=== PATIENT | male | born 1975 | race Caucasian/White ===

== ENCOUNTER 2016-09-27 20:23 | Emergency (ER) | payer SELFPAY ==
[~2016-09-27] VITALS: Ht 177.8 cm; Wt 81.6 kg
--- NOTE | 2016-09-27 20:54 | ED Integumentary General ---
General Chief Complaint: Bite-Animal/Human/Insect Stated Complaint: BUG BITES Nursing Triage Note: States that he noticed "bug bites" to arms and legs. States that it has now moved to face and into nasal passage and eye cavity maiking his visiion blurry. States his arms feel like they are crawling and that he could even see them move. Soars are open and red. Source: patient Exam Limitations: no limitations History of Present Illness Time seen by provider: 20:52 Initial Comments To ER with reports of "bug bites" to his arms and legs for 2 weeks. States that he last used methamphetamine a few days ago. He insists that he does not actually get "high" on methamphetamine. He states these do itch. I advised him the sores are likely from the methamphetamine use but he insists "no, my mother and even my friends all these things moving under my skin. I'm not hallucinating" Timing/Duration: just prior to arrival Severity: moderate Associated Symptoms: denies symptoms Allergies and Home Medications Allergies Coded Allergies: No Known Drug Allergies (Unverified , 09/27/16) Home Medications No Active Prescriptions or Reported Meds Constitutional: see HPI EENTM: see HPI Respiratory: no symptoms reported Cardiovascular: no symptoms reported Genitourinary: no symptoms reported Musculoskeletal: no symptoms reported Skin: see HPI Psychiatric/Neurological: No Symptoms Reported Endocrine: No Symptoms Reported ([place]) Past Sqenbqo-Yofxot-Iqmhsg Hx Patient Social History Alcohol Use: Denies Use Recreational Drug Use: Yes Drug of Choice: meth Smoking Status: Current Everyday Smoker Type Used: Electronic/Vapor 2nd Hand Smoke Exposure: No Recent Foreign Travel: No Contact w/Someone Who Travel: No Recent Infectious Disease Expo: No Recent Hopitalizations: No Immunizations Up To Date Tetanus Booster (TDap): Unknown Seasonal Allergies Seasonal Allergies: No Surgeries Surgeries: Abdominal Blood Transfusions Adverse Reaction to a Blood Tr: No Physical Exam Vital Signs Vital Sign - Last 12Hours 09/27/16 20:45 Pulse 81 Resp 18 B/P (MAP) 153/100 Pulse Ox 99 Capillary Refill : Less Than 3 Seconds General Appearance: WD/WN, no apparent distress HEENT: PERRL/EOMI, normal ENT inspection Neck: non-tender, full range of motion Respiratory: no respiratory distress, no accessory muscle use Gastrointestinal: normal bowel sounds, non tender, soft Neurologic/Psychiatric: alert, normal mood/affect, oriented x 3 Skin: normal color, warm/dry, other (multiple sores to arms and legs without drainage but about 1 cm of surrounding erythema. Consistent with skin picking behavior seen with methamphetamine use.) Progress/Results/Core Measures Results/Orders Vital Signs/I&O Vital Sign - Last 12Hours 09/27/16 20:45 Pulse 81 Resp 18 B/P (MAP) 153/100 Pulse Ox 99 Blood Pressure Mean: 117 Departure Impression Impression: Primary Impression: Tactile hallucinations Additional Impressions: Methamphetamine use Soft tissue infection Disposition: HOME, SELF-CARE Condition: Stable Departure-Patient Inst. Decision time for Depature: 20:54 Referrals: NO,LOCAL PHYSICIAN (PCP) Primary Care Physician Patient Instructions: NO INSTRUCTIONS GIVEN Add. Discharge Instructions: 1. All discharge instructions reviewed with patient and/or family. Voiced understanding. Scripts No Active Prescriptions or Reported Meds JUICE HERNANDEZ APRN Sep 27, 2016 20:54
[2016-09-27 20:59] VITALS: BP 150/90
[2016-09-27] MEDS ORDERED: MUPIROCIN 2% OINT 22 GM (BACTROBAN) TUBE TOP SCH (21:00)
== END 2016-09-27 20:58 | disposition home or self-care (01) ==
LOC: ER 20:26
DX: S40.862A Insect bite (nonvenomous) of left upper arm, initial encounter (principal); S40.861A Insect bite (nonvenomous) of right upper arm, initial encounter; W57.XXXA Bitten or stung by nonvenomous insect and other nonvenomous arthropods, initial encounter
CPT/HCPCS: 99283

== ENCOUNTER 2020-11-06 08:21 | Outpatient (CLI) | payer MEDICAID ==
[~2020-11-06] VITALS: Ht 180.3 cm; Wt 75.9 kg
[2020-11-06] MEDS ORDERED: ACHD5005 PO (14:09)
== END 2020-11-06 14:32 | disposition home or self-care (01) ==
LOC: PREOP 08:21
PROVIDERS: ATTEND Surgery
DX: Z01.818 Encounter for other preprocedural examination (principal)

== ENCOUNTER 2020-11-08 09:49 | Day surgery (SDC) | payer MEDICAID ==
[2020-11-08] VITALS (11 sets, daily range): BP systolic 127–144; BP diastolic 85–97
[~2020-11-08] VITALS: Ht 180.3 cm; Wt 75.9 kg
[~2020-11-08 09:49] MED LIST: ACHD5005 PO
[2020-11-08] MEDS ORDERED: ceFAZolin 2 GM IV Premixed 50 ML IV ONE (10:15)
[2020-11-08] MEDS: LACTATED RINGERS 1,000 ML IV PRN ×2 (10:17→12:42)
[2020-11-08] MEDS ORDERED: LIDOCAINE/EPI 1%-1:200,000 (XYLOCAINE) 30 ML VIAL ONE (10:45)
--- NOTE | 2020-11-08 11:47 | Progress Note-Pre Operative ---
Pre-Operative Progress Note H&P Reviewed The H&P was reviewed, patient examined and no changes noted. Date Seen by Provider: Nov 08, 2020 Time Seen by Provider: 11:00 Date H&P Reviewed: Nov 08, 2020 Time H&P Reviewed: 11:00 Pre-Operative Diagnosis: sx reducible right inguinal hernia FLORENCIA MUÑIZ MD Nov 08, 2020 11:47
--- NOTE | 2020-11-08 11:50 | Discharge Inst-Surgical ---
D/C Lap Instructions-ANTONINO New, Converted, or Re-Newed RX: RX on Chart Follow Up Appt in 2 weeks Activity as tolerated No driving for 24 hours No [address] while on pain medications Incentive Spirometry use every 2 hours while awake Regular Diet Symptoms to Report: Fever over 101 degree F, Nausea/Vomiting Infection Signs and Symptoms to report: Increased redness, Foul odor of wound, Increased drainage Bathing instructions: May shower Operative Area Clean/Dry; Keep incision clean/dry If any problems/questions: Contact your physician or go to Emergency Room FLORENCIA MUÑIZ MD Nov 08, 2020 11:50
[2020-11-08] MEDS ORDERED: ROCURONIUM 10 MG/ML 5 ML SYRINGE IV ONE (11:53)
[2020-11-08] MEDS ORDERED: fentaNYL INJ 100 MCG/2 ML AMP ONE (11:53)
[2020-11-08] MEDS ORDERED: LIDOCAINE PF 2% 5 ML (XYLOCAINE) VIAL ONE (11:53)
[2020-11-08] MEDS ORDERED: proPOfol 200 MG/20 ML (DIPRIVAN) VIAL IV ONE (11:53)
[2020-11-08] MEDS ORDERED: MIDAZOLAM 2 MG/2 ML (VERSED) VIAL ONE (11:54)
[2020-11-08] MEDS ORDERED: ONDANSETRON 4 MG/2 ML (SDV) Z0FRAN IVP PRN ×2 (12:00→13:45)
[2020-11-08] MEDS ORDERED: oxyCODONE/APAP 5/325MG (PERCOCET 5) TABLET PO PRN (12:00)
[2020-11-08] MEDS ORDERED: morphine INJ 10 MG/ML 1ML (SYR OR VIAL) IVP PRN ×2 (12:00)
[2020-11-08] MEDS ORDERED: ACETAMINOPHEN 325 MG TABLET PO PRN (12:00)
[2020-11-08] MEDS ORDERED: NEOSTIGMINE 3 MG/3 ML VIAL ONE (13:13)
[2020-11-08] MEDS ORDERED: GLYCOPYRROLATE 0.2 MG/ML (ROBINUL) 2 ML VIAL ONE (13:13)
--- NOTE | 2020-11-08 13:17 | Progress Note-Post Operative ---
Post-Operative Progess Note Surgeon (s)/Food Services Coordinator (s) Surgeon FLORENCIA MUÑIZ MD Food Services Coordinator: yoana suárez BRIM FLEXER Pre-Operative Diagnosis sx reducible right inguinal hernia Post-Operative Diagnosis right inguinal mass Procedure & Operative Findings Date of Procedure 11/08/20 Procedure Performed/Findings diagnostic laparoscopy, appendectomy, open biopsy right inguinal mass. Anesthesia Type get Estimated Blood Loss Estimated blood loss (mL): minimal Specimens/Packing Specimens Removed inguinal mass, appendix FLORENCIA MUÑIZ MD Nov 08, 2020 13:17
[2020-11-08] MEDS ORDERED: KETOROLAC 30 MG/ML VIAL ONE (13:26)
--- NOTE | 2020-11-08 13:44 | Anesthesia-General Post-Op ---
General Patient Condition Mental Status/LOC: Same as Preop Cardiovascular: Satisfactory Nausea/Vomiting: Absent Respiratory: Satisfactory Pain: Controlled Complications: Absent Post Op Complications Complications None Follow Up Care/Instructions Patient Instructions None needed. Anesthesia/Patient Condition Patient Condition Patient is doing well, no complaints, stable vital signs, no apparent adverse anesthesia problems. No complications reported per nursing. D/C home per [facility] Criteria: Yes RYAN GUZMÁN CRNA Nov 08, 2020 13:44
[2020-11-08] MEDS ORDERED: HYDROmorphone 2 MG/ML VIAL (DILAUDID) IV ONE (13:45)
--- NOTE | 2020-11-08 15:09 | OPERATIVE REPORT ---
DATE OF SERVICE: 11/08/2020 ATTENDING PRIMARY CARE PHYSICIAN: Dr. Diana Irving. PREOPERATIVE DIAGNOSIS: Symptomatic right inguinal hernia. POSTOPERATIVE DIAGNOSIS: Right inguinal mass. PROCEDURE: Diagnostic laparoscopy, laparoscopic appendectomy. Open biopsy, right inguinal mass. SURGEON: Florencia Muñiz MD. SHAVING MACHINE OPERATOR: Geraldo Pratt APRN. ANESTHESIA: General endotracheal. ESTIMATED BLOOD LOSS: Minimal. FINDINGS: Right inguinal mass, which appeared to be a swollen and hardened lymph node, which was also identified within the right iliac chain. No identifiable hernia. Appendix appeared normal. DISPOSITION: The patient tolerated the procedure well. INDICATIONS: The patient is a 44-year-old male who was referred over to us for pain as well as swelling in the right inguinal region for the past 6 months. He says that this would be intermittent; however, has been more constant lately. He was found to have swelling in the right inguinal region as well as pain. He did present to the Emergency Department at [facility] thinking that this might be appendicitis; however CT scan did not show any abnormalities. He states that there is more pain and discomfort upon movement such as lifting and exertion. DESCRIPTION OF PROCEDURE: The patient was brought to the operating room and laid supine on the table. After adequate IV pain and sedative medications and general endotracheal intubation, the abdomen was prepped and draped in standard surgical fashion. A 0.5% Marcaine with epinephrine was used to anesthetize the infraumbilical rim and a sharp towel clamp was used to retract the abdominal wall anteriorly. The Veress needle placed with a low opening pressure of 0 mmHg and the abdomen was then insufflated to 15 mmHg pressure. The Veress needle removed and a 10 mm XL trocar placed followed by a 10 mm 45-degree angle laparoscope visualizing the peritoneal cavity. A 4-quadrant abdominal exploration was performed. There was a slight indentation within the right internal ring; however, we could not tell if there was a hernia at this time. Under direct visualization, we then proceeded to place bilateral 5 mm ports after the skin and peritoneal lining were anesthetized using 0.5% Marcaine with epinephrine and transverse skin incision made using 15 blade. The patient was then placed in Trendelenburg position and the peritoneal lining was then opened starting laterally towards the conjoined tendon and inguinal ligament. We then proceeded medially. At the internal ring, a hard mass was identified. There did not appear to be a hernia. Upon further palpation of the inguinal region, there appeared to be a solid mass near the external ring. Remainder of the small bowel colon and mesentery appeared normal. The appendix appeared normal; however, was then resected using HOMERO 45 mm stapler with a 2.5 mm thickness load with visualization of good hemostasis. The 10 mm port site fascia and peritoneum were then closed under direct visualization using a Benji-Rosaura device and 0 Vicryl suture. The abdomen was then desufflated. An oblique skin incision in the right inguinal region was then made using a 15 blade after the skin was anesthetized using 0.5% Marcaine with epinephrine. The subcutaneous tissue was then opened using electrocautery. A mass was identified at the exit of the external ring. This appeared to be a hard and enlarged lymph node. This was then fully excised using blunt dissection as well as electrocautery with visualization of good hemostasis. There are no testicular mass identified. The subcutaneous tissue was then reapproximated using 3-0 Vicryl interrupted sutures. All skin incisions were closed using 4-0 Monocryl running subcuticular sutures. Wounds were then cleaned and covered with Dermabond. The patient tolerated the procedure well. We will start IV normal pain medication as well as a clear liquid diet. Once he is tolerating clears, has good pain control with oral pain medications, ambulating well, we will discharge him home. We will await the biopsy results as well. Job ID: [id number] DocumentID: [id number] Dictated Date: 11/08/2020 13:27:32 Nurse Gynecology Date: 11/08/2020 15:09:03 Dictated By: FLORENCIA MUÑIZ MD [facility]
== END 2020-11-08 15:35 ==
LOC: SDC 09:49
PROVIDERS: ATTEND Surgery
DX: K38.0 Hyperplasia of appendix (principal); K40.90 Unilateral inguinal hernia, without obstruction or gangrene, not specified as recurrent
CPT/HCPCS: 87081